=== PATIENT | female | born 1985 | race American Indian/Alaskan Native ===

== ENCOUNTER 2017-01-01 11:57 | Day surgery (SDC) | payer MEDICAID ==
--- NOTE | 2017-01-01 12:36 | Anesthesia Day of Surgery ---
Anesthesia Day of Surgery - Day of Surgery Patient Examined: Yes Patient H&P Reviewed: Yes Patient is NPO: Yes
--- NOTE | 2017-01-01 12:36 | Anesthesia Consultation ---
Anesthesia Consult and Med Hx Date of service: 01/01/17 - Airway Anesthetic Teeth Evaluation: Poor ROM Head & Neck: Adequate Mental/Hyoid Distance: Adequate Mallampati Class: Class II Intubation Access Assessment: Probably Good - Pulmonary Exam CTA: Yes - Cardiac Exam Cardiac Exam: RRR - Pre-Operative Health Status ASA Pre-Surgery Classification: ASA2 Proposed Anesthetic Plan: MAC - Pulmonary Hx Smoking: No - Gastrointestinal Hx Gastroesophageal Reflux Disease: Yes - Additional Comments Anesthesia Medical History Comments: HIV POSITIVE
[2017-01-01] MEDS ORDERED: NACL 0.9% 1000 ML 1,000 ML IV SCH (13:00)
[2017-01-01] MEDS ORDERED: DIPRIVAN 10 MG/ML IV ONE (14:04)
--- NOTE | 2017-01-01 15:47 | Operative Report ---
Operative Report Operative Report: Date of procedure: 01/01/2017 Procedure: Esophagogastroduodenoscopy with the wire-guided balloon dilation of proximal esophageal stricture Attending physician: Sacha Pennington MD Direct Mail Clerk: Sacha Pennington MD Indication: Patient is a 31-year-old female who presents with a history of proximal esophageal stricture causing severe dysphagia. An upper endoscopy is done to assess patient and direct treatment based on findings. Consent: Informed consent was obtained after advising the patient and family regarding nature of this procedure, its indications, potential benefits as well as possible complications including but not limited to bleeding perforation and adverse reaction to medication, infection as well as other cardiopulmonary complications. An informed written and verbal consent was then obtained after due opportunity was provided for questions and answers. Monitoring: Patient was monitored continuously with pulse oximetry and electrocardiographic recordings as well as blood pressure recordings. Vital signs remained stable throughout this procedure with no untoward events. Preoperative assessment: Patient was assessed immediately prior to this procedure for capacity to tolerate monitored anesthesia care and moderate sedation as well as general anesthesia. Patient's ASA classification is 2, Mallampati class is 2, Hyomental distance is 3. Instrument: [employer] video endoscope. Also, controlled radial expansion balloon. Medications: Propofol given intravenously in divided doses. For details please refer to anesthesia records. Description of procedure/Findings: Patient was placed in the left lateral decubitus position after achieving sedation, the endoscope was introduced into the esophagus under direct vision. Patient was noted to have a tight esophageal stricture at the level of the upper esophageal sphincter. With the endoscope in this position, a controlled radial expansion balloon with a guidewire was passed through the endoscope into the stricture. Subsequently, the stricture was sequentially dilated to 8 mm. At 8 mm, patient was noted to have a small linear tear therefore additional dilation could not be done. In this area, the lumen appeared somewhat thin. The endoscope could not be advanced beyond this area and the procedure was then completed. Impression: Severe stricture of the proximal esophagus status post esophageal dilation to 8 mm. Plan: Continue treatment with proton pump inhibitors. Also, add Carafate suspension 1 g 4 times daily . Repeat endoscopy with dilation in 2-3 weeks.
--- NOTE | 2017-01-01 15:49 | Discharge Summary ---
Short Stay Discharge Plan Activity: advance as tolerated Weight Bearing Status: Weight Bear as Tolerated
--- NOTE | 2017-01-01 16:14 | Post Anesthesia Evaluation ---
- Post Anesthesia Evaluation Patient Participated: Yes Airway Patent: Yes Stable Respiratory Function: Yes Temp > 96.8F: Yes Pain Manageable: Yes Adequeate Hydration: Yes Anesthesia Complications: No Block Receding Appropriately: Not Applicable
[2017-01-01 16:26] VITALS: BP 99/66
== END 2017-01-01 11:58 | disposition home or self-care (01) ==
LOC: GIO 11:57
PROVIDERS: ATTEND Internal Medicine Gastroenterology
DX: K22.2 Esophageal obstruction (principal); K21.9 Gastro-esophageal reflux disease without esophagitis; Z87.01 Personal history of pneumonia (recurrent)
CPT/HCPCS: 43249; 81025; C1726; J2704; J7030

== ENCOUNTER 2017-05-21 09:31 | Day surgery (SDC) | payer MEDICAID ==
[2017-05-21] MEDS ORDERED: NACL 0.9% 1000 ML 1,000 ML IV SCH (11:00)
[2017-05-21] MEDS ORDERED: DIPRIVAN 10 MG/ML IV ONE ×2 (11:41)
--- NOTE | 2017-05-21 11:41 | Anesthesia Day of Surgery ---
Anesthesia Day of Surgery - Day of Surgery Patient Examined: Yes Patient H&P Reviewed: Yes Patient is NPO: Yes
--- NOTE | 2017-05-21 11:41 | Anesthesia Consultation ---
Anesthesia Consult and Med Hx Date of service: 05/21/17 - Airway Anesthetic Teeth Evaluation: Good (mult broken teeth) ROM Head & Neck: Adequate Mental/Hyoid Distance: Adequate Mallampati Class: Class I Intubation Access Assessment: Probably Good - Pulmonary Exam CTA: Yes - Cardiac Exam Cardiac Exam: RRR - Pre-Operative Health Status ASA Pre-Surgery Classification: ASA2 Proposed Anesthetic Plan: MAC - Pulmonary Hx Smoking: No - Gastrointestinal Hx Gastroesophageal Reflux Disease: Yes - Additional Comments Anesthesia Medical History Comments: [id number] deficiency
[2017-05-21] MEDS ORDERED: WATER FOR IRRIG STERILE IR ONE (11:43)
[2017-05-21 12:41] VITALS: BP 94/62
--- NOTE | 2017-05-21 13:28 | Post Anesthesia Evaluation ---
- Post Anesthesia Evaluation Patient Participated: Yes Airway Patent: Yes Stable Respiratory Function: Yes Nausea/Vomiting: No Temp > 96.8F: Yes Pain Manageable: Yes Adequeate Hydration: Yes Anesthesia Complications: No
--- NOTE | 2017-05-26 13:29 | Operative Report ---
Operative Report Operative Report: Date of procedure: 05/21/2017 Procedure: Esophagogastroduodenoscopy with wire-guided balloon dilation of proximal esophageal stricture Attending physician: Sacha Pennington MD Box Nailer: Sacha Pennington MD Indication: Patient is a 32-year-old female who presented with history of tight proximal esophageal stricture. It has previously been dilated to about 6 mm. Patient has onset of dysphagia again. This procedure is done to evaluate patient so that treatment may be directed based on findings. Consent: Informed consent was obtained after advising the patient and family regarding nature of this procedure, its indications, potential benefits as well as possible complications including but not limited to bleeding perforation and adverse reaction to medication, infection as well as other cardiopulmonary complications. An informed written and verbal consent was then obtained after due opportunity was provided for questions and answers. Monitoring: Patient was monitored continuously with pulse oximetry and electrocardiographic recordings as well as blood pressure recordings. Vital signs remained stable throughout this procedure with no untoward events. Preoperative assessment: Patient was assessed immediately prior to this procedure for capacity to tolerate monitored anesthesia care and moderate sedation as well as general anesthesia. Patient's ASA classification is 2, Mallampati class is 2, Hyomental distance is 3. Instrument: [employer] video endoscope, controlled radial expansion balloon 8-10 mm. Medications: Propofol, given intravenously in divided doses. For details please refer to anesthesia records. Description of procedure/Findings: Patient was placed in the left lateral decubitus position after achieving sedation, the endoscope was introduced into the esophagus under direct vision. Patient had a tight esophageal stricture in the proximal esophagus. The endoscope could not pass through the stricture. Endoscope proximal position, a wire-guided controlled radial expansion balloon was introduced through the endoscope. The stricture was gradually dilated from about 6 mm up to about 9 mm. Patient tolerated procedure well. The procedure however was terminated as the patient developed a small tear. At the time of completion of procedure, the endoscope still could not pass through the proximal esophageal esophagus. Impression: Proximal esophageal stricture status post balloon dilation from 6-9 mm. Plan: Patient to continue with full liquids and mechanical soft diet. She is further instructed to avoid chopped meats or hard solids. A repeat dilation should be done again in the next 4-6 weeks. Patient is instructed to follow-up in the next 1-2 weeks as outpatient.
== END 2017-05-21 09:32 | disposition home or self-care (01) ==
LOC: GIO 09:31
PROVIDERS: ATTEND Internal Medicine Gastroenterology
DX: K22.2 Esophageal obstruction (principal); K21.9 Gastro-esophageal reflux disease without esophagitis; D55.0 Anemia due to glucose-6-phosphate dehydrogenase [G6PD] deficiency; Z87.01 Personal history of pneumonia (recurrent); Z98.890 Other specified postprocedural states; Z79.899 Other long term (current) drug therapy
CPT/HCPCS: 43249; 81025; C1726; J2704